=== PATIENT | male | born 1985 | race African-American/Black ===

== ENCOUNTER 2020-01-31 11:40 | Inpatient (IN) | payer BC ==
[~2020-01-31] VITALS: Ht 175.3 cm; Wt 83.0 kg
[2020-01-31] MEDS ORDERED: ACETAMINOPHEN ES 500 MG TABLET ONE (12:22)
[2020-01-31 12:24] LABS: BASOPHILS % (AUTO) 0.1 % (0.0-2.0); EOSINOPHILS % (AUTO) 0.2 % (0.0-6.0); HEMATOCRIT 44 % (39-51); HEMOGLOBIN 14.2 g/dL (13.5-17.5); LYMPHOCYTES # (AUTO) 0.8 /CMM (0.8-4.8); LYMPHOCYTES % (AUTO) 6.4 % (20.0-44.0); MEAN CORPUSCULAR HGB CONC 33 g/dl (31.0-36.0); MEAN CORPUSCULAR VOLUME 92 fL (80-96); MONOCYTES % (AUTO) 7.5 % (2.0-12.0); NEUTROPHILS # (AUTO) 11.2 /CMM (1.8-8.9); NEUTROPHILS % (AUTO) 85.8 % (43.0-81.0); PLATELET COUNT (AUTO) 187 /CMM (150-450); RED BLOOD CELL COUNT(AUTO) 4.73 MIL/uL (4.5-6.0); WHITE BLOOD COUNT (AUTO) 13.1 K/uL (4.3-11.0)
[2020-01-31] MEDS ORDERED: ACETAMINOPHEN ES 500 MG TABLET PO ONE (12:30)
[2020-01-31] MEDS ORDERED: IV NS 0.9% 1,000 ML BAG IV ONE (12:30)
--- NOTE | 2020-01-31 12:31 | NUR ---
BIBS FROM HOME TO ER BED 6. AAOX4. NOT IN RESP DISTRESS, BREATHING EVEN AND UNLABORED. AMBULATORY. CAME IN FOR LLQ ABD PAIN SINCE YESTERDAY AND GOT WORST THIS MORNING @ 0400. PT RATES HIS PAIN 5/10 DULL AGGREVATED BY MOVING. TENDERNESS NOTED ON LLQ UPON PALPATION WHICH ALSO AGGREVATED THE PAIN. DENIES ANY N/V/D. WAS AT THE BEDSIDE FOR EVAL. ORDERS RECEIVED NOTED AND CARRIED OUT. BLOOD DRAWN BY CORE WINDER MACHINE OPERATOR. IV ACCESS ESTABLISHED ON L AC 20G. URTINE COLLECTED AND SENT TO LAB.
[2020-01-31 12:38] LABS: ALBUMIN 3.8 g/dL (3.4-5.0); BILIRUBIN,DIRECT 0.2 mg/dL (0.0-0.2); CALCIUM, SERUM 9.3 mg/dL (8.5-10.1); CREATININE 1.2 mg/dL (0.6-1.3); POTASSIUM 3.9 mmol/L (3.5-5.1); TOTAL PROTEIN, SERUM 7.7 g/dL (6.4-8.2)
[2020-01-31 13:01] LABS: APPEARANCE,URINE Slightly Cloudy (CLEAR); BILIRUBIN,URINE Negative (NEGATIVE); BLOOD, URINE Negative Ery/uL (NEGATIVE); COLOR,URINE Dark (YELLOW); KETONES,URINE Negative (NEGATIVE); LEUKOCYTE ESTERASE ,URINE Negative (NEGATIVE); NITRITE, URINE Negative (NEGATIVE); PROTEIN,URINE Trace mg/dl (NEGATIVE); UGLUCOSE Negative (NEGATIVE)
[2020-01-31 13:31] LABS: BACTERIA,URINE None seen /HPF (None Seen); MUCUS,URINE Moderate /LPF (None Seen); RBC,URINE 0-2 /HPF (0-2); SQUAMOUS EPITHELIAL CELL,UR Moderate /HPF (None Seen); WBC,URINE 0-2 /HPF (0-3)
[2020-01-31] MEDS ORDERED: ELVI1TAB3 PO (13:37)
[2020-01-31] MEDS ORDERED: PIPERACILLIN /TAZOBACTAM 3.375 G in IV D5W 50 ML IV ONE (14:00)
--- NOTE | 2020-01-31 14:03 | NUR ---
COVID SWAB DONE AND SENT TO LAB
[2020-01-31] MEDS ORDERED: Z GUARD REMEDY 2 OZ OINT TP PRN (15:00)
[2020-01-31] MEDS ORDERED: MAGNESIUM HYDROXIDE 30 ML UDC PO PRN (15:00)
[2020-01-31] MEDS ORDERED: MAG HYDROX/AL HYDROX/SIMETH 30 ML UDC PO PRN (15:00)
[2020-01-31] MEDS ORDERED: ONDANSETRON HCL/PF 4 MG/2 ML VIAL IVP PRN (15:00)
--- NOTE | 2020-01-31 15:03 | NUR ---
NURSING SUP GAVE M/S BED 320-2. TORSTEN IS THE NURSE.
--- NOTE | 2020-01-31 15:11 | NUR ---
REPORT GIVEN TO RENO SARMIENTO FOR PABLO
--- NOTE | 2020-01-31 15:17 | NUR ---
PT TRANSPORTED TO UNIT ON WHEELCHAIR ON STABLE CONDITION WITH EMT AT BEDSIDE.
--- NOTE | 2020-01-31 16:06 | NUR ---
RN NOTES PT TRANSPORTED TO [facility] VIA WHEELCHAIR. BEDSIDE REPORT GIVEN TO RN ALEX SOLER.
[2020-01-31] MEDS: MORPHINE SULFATE INJ 2 MG/ML DISP.SYRIN IV PRN ×2 (16:15→18:52)
[2020-01-31] MEDS: IV NS 0.9% 1,000 ML IV PRN (16:15)
[2020-01-31 18:00] VITALS: BP 134/82
[2020-01-31] MEDS ORDERED: PIPERACILLIN /TAZOBACTAM 3.375 G in IV D5W 50 ML IV SCH ×4 (18:00)
[2020-01-31 20:00] VITALS: BP 129/86
--- NOTE | 2020-01-31 20:00 | NUR ---
RN MEDSURG NOTE RECEIVED PT IN BED.AWAKE ALERT ORIENTED X4. BREATHING EVEN AND UNLABORED IN , SATURATION AT 98%. DENIES ANY PAIN AT THE MOMENT. LAC #20G PATENT. IVF INFUSING WELL. PT DENIES PAIN AT IV SITE. CONTINUOUS TO NPO. TOLERATING WELL. ALL NEEDS RENDERED. BED IN LOWEST POSITION. CALL LIGHT WITHIN REACH. WILL CONTINUE TO MONITOR.
--- NOTE | 2020-01-31 20:07 | NUR ---
RN CLOSING NOTE: Patient resting in bed. Awake, alert and oriented x4. Able to make needs known. On room air and being tolerated well. Saturation @ 98%. Pain reported on LLQ related to current admission. Managed with morrphine 2mg @ 3h with little relief noted. Iv site clean, dry, patent and intact. Iv infusion of NS @ 75mls/hr being tolerated well. Patient was seen by Dr. Castellanos and is aware about current treatment plan. Belongings form signed, patient with no reported skin issues. Admission orders received. Due medications given. Treatment given as ordered. Call light in reach. Bed locked, low and at semi-noonan's position. Side rails up x3. Safety ensured and observed.. Endorsed to oncoming shift for finishing of admission and PABLO. .
[2020-01-31] MEDS: PIPERACILLIN /TAZOBACTAM 3.375 G in IV D5W 100 ML IV SCH (20:13)
[2020-02-01 04:00] VITALS: BP 113/69
[2020-02-01] MEDS: ACETAMINOPHEN 325 MG TABLET PO PRN ×2 (04:26→18:56)
[2020-02-01] MEDS: PIPERACILLIN /TAZOBACTAM 3.375 G in IV D5W 100 ML IV SCH ×3 (04:26→19:46)
[2020-02-01 06:28] LABS: BASOPHILS % (AUTO) 0.3 % (0.0-2.0); EOSINOPHILS % (AUTO) 0.2 % (0.0-6.0); HEMATOCRIT 42 % (39-51); HEMOGLOBIN 13.6 g/dL (13.5-17.5); LYMPHOCYTES # (AUTO) 1.8 /CMM (0.8-4.8); LYMPHOCYTES % (AUTO) 14.3 % (20.0-44.0); MEAN CORPUSCULAR HGB CONC 32 g/dl (31.0-36.0); MEAN CORPUSCULAR VOLUME 92 fL (80-96); MONOCYTES # (AUTO) 0.8 /CMM (0.1-1.30); MONOCYTES % (AUTO) 6.1 % (2.0-12.0); NEUTROPHILS # (AUTO) 10.1 /CMM (1.8-8.9); NEUTROPHILS % (AUTO) 79.1 % (43.0-81.0); PLATELET COUNT (AUTO) 163 /CMM (150-450); RED BLOOD CELL COUNT(AUTO) 4.53 MIL/uL (4.5-6.0); WHITE BLOOD COUNT (AUTO) 12.7 K/uL (4.3-11.0)
[2020-02-01 07:07] LABS: CALCIUM, SERUM 8.4 mg/dL (8.5-10.1); CREATININE 1.3 mg/dL (0.6-1.3); MAGNESIUM 1.7 mg/dL (1.8-2.4); PHOSPHORUS 3.2 mg/dL (2.5-4.9); POTASSIUM 3.7 mmol/L (3.5-5.1)
--- NOTE | 2020-02-01 07:13 | NUR ---
RN CLOSING NOTE PT IN BED, ASLEEP. BREATHING EVEN AND UNLABORED. NO SOB OR ACUTE DISTRESS NOTED. NO S/S OF PAIN NOTED. NPO STATUS . TOLERATED WELL. LAC IV SITE PATENT. IV ATB INFUSING WELL. HOB ELEVATED. BED IN LOWEST POSITION. CALL LIGHT WITHIN REACH. ALL NEEDS RENDERED. WILL CONTINUE TO NEXT SHIFT FOR CONTINUITY OF CARE.
[2020-02-01 07:26] LABS: THYROID STIMULATING HORMONE 1.045 uIU/mL (0.358-3.74)
[2020-02-01 08:00] VITALS: BP 116/67
--- NOTE | 2020-02-01 08:05 | NUR ---
RN MS1 PATIENT A/OX 4 IN ROOM AIR. NO SIGNS OF ACUTE RESPIRATORY DISTRESS. PATIENT SATURATION <95. PATIENT BRP. NO SKIN INTACT. NO APPARENT SIGNS OF SKIN BREAKDOWN. AT THIS TIME PATIENT IS NPO PATIENT FOR CLEARANCE FOR DR. JOAO Stearns, NO SIGNS OF INFILTRATION, NO REDNESS. FLUSHED AND PATIENT. BED LOCKED LOWEST POSITION CALL LIGHT WITH IN REACH ALL SAFETY MEAUSRE IMPLEMENTED PER HOSPITAL POLICY . 2 X RAILS UP.
[2020-02-01] MEDS: GENVOYA PO SCH (09:01)
[2020-02-01] MEDS: Magnesium 1GM/D5W 100ML PREMIX 100 ML IV SCH ×2 (10:49→11:52)
[2020-02-01 12:00] VITALS: BP 124/75
--- NOTE | 2020-02-01 18:28 | NUR ---
RN MS1 NO CHANGE IN PATIETN CONDITION AT THIS TIME. PATIENT REMAINS STABLE, VITALS STABLE, NO FEVER DURING SHIFT. NO SIGNS OF ALOC. PATIENT A/OX 4 . PATIENT AMBULATORY BRP PATIENT ON CLEAR LIQUED LAC 20 NO SIGNS OF INFILTRATION . FLUSHING AND PATIENT. BED LOCKED LOWEST POSITION CALL LIGHT WITH IN REACH ALL SAFETY MEASURE IMPLEMENTED PER HOSPITAL POLICY.
--- NOTE | 2020-02-01 19:40 | NUR ---
MS RN NOTES PATIENT IN BED, AWAKE, ALERT AND ORIENTED X 4. BREATHING EVEN AND UNLABORED ON ROOM AIR. SHOWS NO SIGNS OF ACUTE RESPIRATORY DISTRESS. NO ACUTE WILBER . IV ON LAC 20G ITS RUNNING NS AT 75ML/HR. PT IS ON CLEAR LIQUID DIET. SAFETY PRECAUTIONS IN PLACE. BED IN LOWEST POSITION, LOCKED, AND CALL LIGHT KEPT WITHIN REACH. WILL CONTINUE TO MONITOR.
[2020-02-01] MEDS: MORPHINE SULFATE INJ 2 MG/ML DISP.SYRIN IV PRN (19:45)
--- NOTE | 2020-02-01 19:45 | NUR ---
MS RN NOTES PATIENT COMPLAINING OF PAIN 12/22. GIVEN MORPHINE PRN AT 194. VITAL SIGNS WNL. WILL CONTINUE TO MONITOR.
[2020-02-01 20:00] VITALS: BP 124/77
[2020-02-02 04:00] VITALS: BP 114/94
[2020-02-02] MEDS: PIPERACILLIN /TAZOBACTAM 3.375 G in IV D5W 100 ML IV SCH ×3 (04:07→19:36)
[2020-02-02 06:43] LABS: BASOPHILS % (AUTO) 0.3 % (0.0-2.0); EOSINOPHILS % (AUTO) 0.5 % (0.0-6.0); HEMATOCRIT 41 % (39-51); HEMOGLOBIN 13.4 g/dL (13.5-17.5); LYMPHOCYTES # (AUTO) 1.8 /CMM (0.8-4.8); LYMPHOCYTES % (AUTO) 17.6 % (20.0-44.0); MEAN CORPUSCULAR HGB CONC 33 g/dl (31.0-36.0); MEAN CORPUSCULAR VOLUME 92 fL (80-96); MONOCYTES # (AUTO) 0.6 /CMM (0.1-1.30); MONOCYTES % (AUTO) 6.5 % (2.0-12.0); NEUTROPHILS # (AUTO) 7.5 /CMM (1.8-8.9); NEUTROPHILS % (AUTO) 75.1 % (43.0-81.0); PLATELET COUNT (AUTO) 169 /CMM (150-450); RED BLOOD CELL COUNT(AUTO) 4.46 MIL/uL (4.5-6.0)
--- NOTE | 2020-02-02 06:56 | NUR ---
MS RN NOTES PATIENT IN BED, ASLEEP, ALERT AND ORIENTED X 4. BREATHING EVEN AND UNLABORED ON ROOM AIR. SHOWS NO SIGNS OF ACUTE RESPIRATORY DISTRESS. NO ACUTE PAIN. IV ON LAC 20G ITS RUNNING NS AT 75ML/HR. PT IS ON CLEAR LIQUID DIET. ALL DUE MEDICATIONS GIVEN. SAFETY PRECAUTIONS IN PLACE. BED IN LOWEST POSITION, LOCKED, AND CALL LIGHT KEPT WITHIN REACH. WILL ENDORSE TO ONCOMING NURSE.
--- NOTE | 2020-02-02 07:00 | NUR ---
[facility] RN OPENING NOTE RECEIVED PT AWAKE IN BED AT THIS TIME. AOX4. PT ABLE TO MAKE TO VERBALIZE NEEDS. NO SOB NOTED, NO S/S OF ANY APPARENT DISTRESS NOTED. NO C/O PAIN AT THIS TIME. RESPIRATIONS ARE EVEN AND UNLABORED WITH EQUAL RISE AND FALL IN CHEST. IV ACCESS NOTED IN LAC G#20, PATENT, INTACT AND INFUSING NS@75ML. SAFETY PRECAUTION IN PLACE AND MAINTAINED AT ALL TIMES. BED IN LOWEST LOCKED POSITION, HOB ELEVATED, RAILS UP X 2, CALL LIGHT WITHIN REACH. WILL CONTINUE TO MONITOR
[2020-02-02 07:02] LABS: CALCIUM, SERUM 8.5 mg/dL (8.5-10.1); CREATININE 1.3 mg/dL (0.6-1.3); MAGNESIUM 2.2 mg/dL (1.8-2.4); POTASSIUM 3.9 mmol/L (3.5-5.1)
[2020-02-02 08:00] VITALS: BP 123/70
[2020-02-02] MEDS: GENVOYA PO SCH (08:28)
[2020-02-02] MEDS: HYDROCODONE/APAP 5/325MG TABLET PO PRN ×2 (08:30→18:38)
[2020-02-02] MEDS: IV NS 0.9% 1,000 ML IV PRN (08:33)
--- NOTE | 2020-02-02 08:40 | NUR ---
PT C/O OF GUARDING,THROBBING, ACHING LEFT LATERAL ABD PAIN OF 5/10 AT THIS TIME. PT OBSERVED GRASPING ABD. VS WNL. PER PT REQUEST, NORCO 5-325 PO Q4HR PRN FOR PAIN ADMINISTERED AT THIS TIME. WILL CONTINUE TO MONITOR
[2020-02-02 16:00] VITALS: BP 130/84
--- NOTE | 2020-02-02 18:38 | NUR ---
PT C/O OF PULLING, ACHING,THROBBING, LEFT LATERAL ABD PAIN OF 6/10 AT THIS TIME. PT OBSERVED GRASPING ABD. BP 130/84 P 89, RR 20, T 98.6, SPO2 97%. PER PT REQUEST, NORCO 5-325 PO Q4HR PRN FOR PAIN ADMINISTERED AT THIS TIME. WILL CONTINUE TO MONITOR
--- NOTE | 2020-02-02 18:50 | NUR ---
MS RN CLOSING NOTES PT AWAKE IN BED AT THIS TIME. PT REMAINED STABLE THROUGHOUT SHIFT. ALL CARE, NEEDS, MEDICATIONS AND TREATMENT ADMINISTERED ANTICIPATED PER ORDER. PAIN MANAGEMENT ADMINISTERED. SAFETY PRECAUTION IN PLACE AND MAINTAINED AT ALL TIMES. BED IN LOWEST LOCKED POSITION, HOB ELEVATED, RAILS UP X 2, CALL LIGHT WITHIN REACH. WILL ENDORSE TO BLOCKMAN NURSE
--- NOTE | 2020-02-02 19:08 | NUR ---
RN OPENING NOTE RECEIVED PT IN BED. AWAKE ALERT AND ORIENTED X 4. FULL CODE. SPEAKS BENGALI. UNIVERSAL PRECAUTIONS IMPLEMENTED. ON ROOM AIR TOLERATING WELL. BREATHING IS EVEN AND UNLABORED. NO SIGNS OF SHORTNESS OF BREATH OR RESPIRATORY DISTRESS NOTED AT THIS TIME. ON A CLEAR LIQUID DIET. CONTINENT WITH BATHROOM PRIVILEGES. AMBULATORY WITH STEADY GAIT. SKIN IS WARM DRY AND INTACT. IV SITE ON LEFT AC #20 INFUSING NS @75ML. PATENT, FLUSHED. DENIES PAIN AT THIS TIME. CALL LIGHT WITHIN REACH. BED IS LOCKED IN LOWEST POSITION. WILL CONTINUE TO MONITOR.
[2020-02-02 20:00] VITALS: BP 134/81
--- NOTE | 2020-02-03 01:09 | NUR ---
PT IS CURRENTLY ASLEEP, RESTING IN BED. NS STILL INFUSING, NO SIGNS OR SYMPTOMS OF INFILTRATION NOTED. WILL CONTINUE TO MONITOR.
[2020-02-03] MEDS: IV NS 0.9% 1,000 ML IV PRN (02:50)
[2020-02-03 04:00] VITALS: BP 118/78
[2020-02-03] MEDS: PIPERACILLIN /TAZOBACTAM 3.375 G in IV D5W 100 ML IV SCH ×2 (04:30→12:41)
[2020-02-03] MEDS: ACETAMINOPHEN 325 MG TABLET PO PRN (06:06)
[2020-02-03 07:11] LABS: BASOPHILS % (AUTO) 0.6 % (0.0-2.0); EOSINOPHILS % (AUTO) 1.9 % (0.0-6.0); HEMATOCRIT 41 % (39-51); HEMOGLOBIN 13.2 g/dL (13.5-17.5); LYMPHOCYTES # (AUTO) 1.6 /CMM (0.8-4.8); LYMPHOCYTES % (AUTO) 24.2 % (20.0-44.0); MEAN CORPUSCULAR HGB CONC 32 g/dl (31.0-36.0); MEAN CORPUSCULAR VOLUME 93 fL (80-96); MONOCYTES # (AUTO) 0.5 /CMM (0.1-1.30); MONOCYTES % (AUTO) 6.9 % (2.0-12.0); NEUTROPHILS # (AUTO) 4.5 /CMM (1.8-8.9); NEUTROPHILS % (AUTO) 66.4 % (43.0-81.0); PLATELET COUNT (AUTO) 215 /CMM (150-450); RED BLOOD CELL COUNT(AUTO) 4.47 MIL/uL (4.5-6.0); WHITE BLOOD COUNT (AUTO) 6.8 K/uL (4.3-11.0)
--- NOTE | 2020-02-03 07:36 | NUR ---
RN OPENING NOTES: RECEIVED PT IN BED AWAKE A/OX4, ON RA TOLERATING WELL, NO SIGNS OF RESPIRATORY DISTRESS, DIFFICULTY BREATHING, SOB, OR ANY PAIN. IV SITE INTACT CLEAN FLUSHED WELL, ALL SAFETY MEASURES MAINTAINED CALL LIGHT WITHIN REACH WILL CONTINUE TO MONITOR.
--- NOTE | 2020-02-03 07:40 | NUR ---
RN CLOSING NOTE PT IS CURRENTLY RESTING. ALERT AND ORIENTED X4. PT DENIES PAIN AT THIS TIME. PT SLEPT WELL THROUGHOUT THE NIGHT. VITAL SIGNS STABLE. PT IS ON ROOM AIR TOLERATING WELL, NO SIGNS OF SOB OR RESP DISTRESS. BREATHING IS EVEN AND UNLABORED. MEDS GIVEN ORDERED. AT 0606 PT VERBALIZED 3/10 PAIN AND REQUESTED TYLENOL PRN, ORDERS CARRIED OUT. UPON REASSESSMENT PT VERBALIZED 0-1/10 AND THAT TYLENOL HELPED. PT HAD 1BM AND 2 VOIDS ON MY SHIFT. BED IS CURRENTLY LOCKED IN LOWEST POSITION. CALL LIGHT WITHIN REACH. ENDORSED TO ONCOMING SHIFT NURSE FOR CONTINUATION OF CARE.
[2020-02-03] MEDS: GENVOYA PO SCH (10:45)
[2020-02-03 12:00] VITALS: BP 128/86
[2020-02-03] MEDS ORDERED: METR500T PO (12:34)
[2020-02-03] MEDS ORDERED: LEVO750T46 PO (12:34)
[2020-02-03] MEDS ORDERED: HYDR-4384 PO (12:34)
[2020-02-03] MEDS: HYDROCODONE/APAP 5/325MG TABLET PO PRN (13:52)
--- NOTE | 2020-02-03 15:31 | NUR ---
RN NOTES: PT WAS IN STABLE CONDITION, DISCHARGE INSTRUCTIONS WERE GIVEN, DISCHARGE EDUCATION WAS PROVIDED, PRESCRIPTION WAS GIVEN, NO ACUTE CHANGES, PT LEFT WITH HIS PARTNER.
== END 2020-02-03 14:50 | disposition home or self-care (01) | DRG 872 ==
LOC: ER 11:46 → MED 15:40 → MEDSG1 16:23
PROVIDERS: ADMIT Nurse Practitioner Acute Care; ATTEND Nurse Practitioner Acute Care
DX: A41.9 Sepsis, unspecified organism (principal); K57.20 Diverticulitis of large intestine with perforation and abscess without bleeding; E87.1 Hypo-osmolality and hyponatremia; K52.9 Noninfective gastroenteritis and colitis, unspecified; K42.9 Umbilical hernia without obstruction or gangrene; E86.1 Hypovolemia; E66.9 Obesity, unspecified; Z83.3 Family history of diabetes mellitus; Z82.49 Family history of ischemic heart disease and other diseases of the circulatory system; Z68.27 Body mass index [BMI] 27.0-27.9, adult
CPT/HCPCS: 36415; 80048-TC; 80061-TC; 80076-TC; 81000-TC; 83605-TC; 83690-TC; 83735-TC; 84100-TC; 84443-TC; 85025-TC; 87040-TC; 87081-TC; A4349; C9803-CS; G0378; J2270; J2543; J3475; J7030; J7060

== ENCOUNTER 2021-12-18 19:24 | Emergency (ER) | payer BC ==
[~2021-12-18] VITALS: Ht 175.3 cm; Wt 79.4 kg
[~2021-12-18 19:24] MED LIST: ELVI1TAB3 PO; HYDR-4384 PO; LEVO750T46 PO; METR500T PO
[2021-12-18] MEDS ORDERED: LIDOCAINE 1%-EPI 1:100,000 20 ML VIAL ONE (20:25)
[2021-12-18] MEDS ORDERED: LIDOCAINE 1%-EPI 1:100,000 20 ML VIAL TP ONE (20:30)
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
[2021-12-18] MEDS ORDERED: HYDROCODONE/APAP 5/325MG TABLET PO ONE (23:00)
[2021-12-18] MEDS ORDERED: GELATIN SPONGE,ABSORBABLE 1 SPONGE SPONGE TP ONE ×3 (23:00→23:01)
[2021-12-18] MEDS ORDERED: CEPHALEXIN MONOHYDRATE 500 MG CAPSULE PO ONE ×2 (23:00→23:11)
[2021-12-18] MEDS ORDERED: HYDROCODONE/APAP 5/325MG TABLET ONE (23:11)
[2021-12-18] MEDS ORDERED: CEPH500C2 PO (23:19)
[2021-12-18] MEDS ORDERED: HYDR-4303 PO (23:19)
[2021-12-18] MEDS ORDERED: NAPR-1009 PO (23:19)
--- NOTE | 2021-12-18 23:35 | NUR ---
Patient discharged to home in stable condition. Written and verbal after care instructions given. Patient verbalizes understanding of instruction.
[2021-12-19 03:57] VITALS: BP 122/81
== END 2021-12-18 23:39 | disposition home or self-care (01) ==
LOC: ER 19:27
DX: S51.812A Laceration without foreign body of left forearm, initial encounter (principal); S61.411A Laceration without foreign body of right hand, initial encounter; S61.215A Laceration without foreign body of left ring finger without damage to nail, initial encounter; Z79.899 Other long term (current) drug therapy; Y04.8XXA Assault by other bodily force, initial encounter; Y93.89 Activity, other specified; Y92.89 Other specified places as the place of occurrence of the external cause; Y99.8 Other external cause status
CPT/HCPCS: 12044; 99284; 12004; 73090; 73130; J3490